=== PATIENT | male | born 1955 | race Caucasian/White ===

== ENCOUNTER 2017-04-30 10:50 | Emergency (ER) | payer OTHER ==
--- NOTE | 2017-04-30 11:11 | EDPHY ---
H & P Time Seen by Provider: 04/30/17 10:54 HPI/ROS: CHIEF COMPLAINT: Laceration left thigh HISTORY OF PRESENT ILLNESS: 61-year-old male presents to the emergency department by private vehicle complaining of laceration to his left thigh. The patient was at home just prior to arrival and was using a chainsaw which slipped and cut his left leg. It went through his pants. He was not wearing chaps or any other protective wear. He was able to control the bleeding with firm direct pressure. He denies any other trauma or injury. His last tetanus shot was 2 years ago. He is able to ambulate. ROS: Denies numbness or tingling in his toes, retained foreign body, pain in his left knee or hip. Past Medical/Surgical History: Crohn's disease, hypertension, orthopedic surgeries Social History: Smoking Status: Former smoker Physical Exam: Examination left anterior thigh reveals a large 9 cm laceration to the anterior aspect of the left thigh just above the left knee. No palpable bony tenderness. No evidence of retained foreign body. No evidence of obvious muscle injury or laceration to the fascia. Full range of motion of the left lower extremity. No palpable bony tenderness. Nontender to palpate the left knee or left hip. Straight leg raise does not cause any pain in his able to do so unassisted. Normal sensation to light touch with normal 2 point discrimination. Constitutional: Initial Vital Signs Temperature (C) 36.9 C 04/30/17 10:56 Heart Rate 101 H 04/30/17 10:56 Respiratory Rate 18 04/30/17 10:56 Blood Pressure 111/80 04/30/17 10:56 O2 Sat (%) 94 04/30/17 10:56 O2 Delivery Mode Room Air Allergies/Adverse Reactions: No Known Allergies Allergy (Unverified 06/01/15 18:12) Home Medications: Medication Instructions Recorded Cyanocobalamin [Vitamin B12 (*)] 1,000 mcg PO DAILY 06/02/15 Lisinopril [Zestril 10 mg (*)] 10 mg PO DAILY 06/02/15 Mesalamine [Lialda] 2.4 gm PO DAILY 06/02/15 Multivitamins [Multivitamin (*)] 1 tab PO DAILY 06/02/15 Tears/Hypromellose [Natural 1 drop EACHEYE Q2 PRN #0 opht.btl 06/06/15 Balance] Guar Gum [Benefiber/Nutrisource 1 each PO BID #0 pkt 06/12/15 Fiber (*)] Hydrocodone/APAP 5/325 [Winter 2 tab PO TID PRN #90 tab 06/12/15 5/325 (*)] Polyethylene Glycol 3350 [Miralax 17 gm PO DAILY PRN #0 pkt 06/12/15 17 gm (*)] Sennosides/Docusate Sodium 1 tab PO BID #0 tab 06/12/15 [Senokot-S] Zolpidem Tartrate [Ambien 5MG (*)] 5 - 10 mg PO HS PRN #30 tab 06/12/15 oxyCODONE IR [Oxycodone Ir (*)] 5 - 10 mg PO Q4H PRN #100 tab 06/12/15 MDM/Departure - MDM Procedures: Laceration repair. Verbal consent was obtained from the patient. The 9 cm laceration on the left anterior thigh was anesthetized using 1% lidocaine with epinephrine. The wound was irrigated with saline, draped and explored to its base with a gloved finger. There were no deep structures involved. No tendon injury was identified. The wound was repaired with 4 0 Vicryl, 10 sutures and 4 0 Ethilon , 15 sutures. The wound repair was complex. The procedure was performed by myself. ED Course/Re-evaluation: 61-year-old male presents to the emergency department with laceration to his left thigh from a chain saw. The wound was very clean. No injury to muscle belly or fascia. Wound was thoroughly irrigated and repaired, see procedure note. I explained to the patient that I do not think antibiotics are indicated. The wound was very clean. I do not think delayed primary closure was indicated. This was explained to the patient. I encouraged him to take anti- inflammatories for pain. His tetanus shot is current. He was given wound care precautions including avoiding any, open water until the wound has completely healed and sutures are removed. - Depart Disposition: Home, Routine, Self-Care Clinical Impression: Laceration of left thigh Qualifiers: Encounter type: initial encounter Qualified Code(s): S71.112A - Laceration without foreign body, left thigh, initial encounter Condition: Good Instructions: Laceration (ED), Care For Your Stitches (ED), Acute Wounds (ED) Additional Instructions: Wound Care Follow-Up: Removal of sutures in 10-14 days. Suture removal is complimentary in uncomplicated cases. Infection or abnormal findings would require reevaluation by the MD. In that case, you may be billed. Keep wound dry, clean and protected. Return if you notice any signs or symptoms of infection such as redness, swelling, increased pain, fever, purulent drainage. Activity as tolerated. Avoid any open water until the sutures have been removed and the wound is completely healed. Referrals: Lori Pro MD [Medical Doctor] - 2-3 days, if not improved
[2017-04-30 12:13] VITALS: BP 110/88; PULSE 91; RESP 15; TEMP 98.8; O2SAT 93
== END 2017-04-30 12:13 | disposition home or self-care (01) ==
PROC: 0HQJXZZ Repair Left Upper Leg Skin, External Approach (ICD-10-PCS; principal; 2017-04-30)
DX: S71.112A Laceration without foreign body, left thigh, initial encounter (principal); I10 Essential (primary) hypertension; Z87.891 Personal history of nicotine dependence; W29.3XXA Contact with powered garden and outdoor hand tools and machinery, initial encounter; Y92.009 Unspecified place in unspecified non-institutional (private) residence as the place of occurrence of the external cause

== ENCOUNTER → 2017-09-19 | Outpatient (CLI) | payer OTHER | LOC: FLAB 16:27 | PROVIDERS: ATTEND Physician Assistant | DX: K50.118 Crohn's disease of large intestine with other complication (principal) ==